=== PATIENT | male | born 1995 | race Caucasian/White ===

== ENCOUNTER 2017-09-04 21:55 | Emergency (ER) | payer BC ==
[~2017-09-04] VITALS: Ht 165.1 cm; Wt 84.9 kg
[2017-09-04 21:55] VITALS: BP 116/80
--- NOTE | 2017-09-04 22:41 | PHYS DOC ---
Adult General Chief Complaint Chief Complaint: EYE PROBLEMS HPI HPI 22-year-old male presents with left eye irritation. The patient was taking a shower when he felt like there was something in his left eye. He has no idea what it might be. He still feels as though there is a foreign substance in his eye. He does not wear contacts and is wearing glasses. He denies any other complaints. Review of Systems Review of Systems Constitutional: Denies fever or chills [] Eyes: Left eye irritation[] HENT: Denies nasal congestion or sore throat [] Respiratory: Denies cough or shortness of breath [] Cardiovascular: No additional information not addressed in HPI [] GI: Denies abdominal pain, nausea, vomiting, bloody stools or diarrhea [] : Denies dysuria or hematuria [] Musculoskeletal: Denies back pain or joint pain [] Integument: Denies rash or skin lesions [] Neurologic: Denies headache, focal weakness or sensory changes [] Endocrine: Denies polyuria or polydipsia [] All other systems were reviewed and found to be within normal limits, except as documented in this note. Current Medications Current Medications Current Medications Medications (Trade) Dose Ordered Sig/Keek Start Time Stop Time Status Last Admin Dose Admin Tetracaine HCl (Tetracaine) 1 drop 1X ONCE 09/04/17 22:45 09/04/17 22:46 UNV Allergies Allergies Allergies Coded Allergies Type Severity Reaction Last Updated Verified No Known Drug Allergies 10/11/13 No Physical Exam Physical Exam Constitutional: Well developed, well nourished, no acute distress, non-toxic appearance. [] HENT: Normocephalic, atraumatic, bilateral external ears normal, oropharynx moist, no oral exudates, nose normal. [] Eyes: PERRLA, EOMI, conjunctiva normal, no discharge. [] Neck: Normal range of motion, no tenderness, supple, no stridor. [] Cardiovascular:Heart rate regular rhythm, no murmur [] Lungs & Thorax: Bilateral breath sounds clear to auscultation [] Abdomen: Bowel sounds normal, soft, no tenderness, no masses, no pulsatile masses. [] Skin: Warm, dry, no erythema, no rash. [] Back: No tenderness, no CVA tenderness. [] Extremities: No tenderness, no cyanosis, no clubbing, ROM intact, no edema. [] Neurologic: Alert and oriented X 3, normal motor function, normal sensory function, no focal deficits noted. [] Psychologic: Affect normal, judgement normal, mood normal. [] EKG EKG [] Radiology/Procedures Radiology/Procedures [] Course & Med Decision Making Course & Med Decision Making Pertinent Labs and Imaging studies reviewed. (See chart for details) Fluorescein and Wood's lamp exam did not show any abnormal uptake or abrasion. The foreign body appears to be gone. I told the patient that the irritation can last for a while after the foreign body falls out. He was relieved by this result and just wanted to be sure there is nothing still in there. He is stable for discharge. [] Dragon Disclaimer Dragon Disclaimer This electronic medical record was generated, in whole or in part, using a voice recognition dictation system. Departure Departure: Referrals: YUNIOR STEWART MD (PCP) HUSSEIN GREEN DO Sep 04, 2017 22:41
[2017-09-04] MEDS ORDERED: TETRACAINE 0.5% OPHTH SOLUTION 4ML BOTTLE. OS ONE (23:00)
== END 2017-09-04 23:00 | disposition home or self-care (01) ==
LOC: ER 21:55
DX: H57.8 Other specified disorders of eye and adnexa (principal)
CPT/HCPCS: 99283